=== PATIENT | male | born 1955 | race Caucasian/White ===

== ENCOUNTER 2019-10-29 08:54 | Inpatient (IN) | payer MEDICAID ==
[~2019-10-29] VITALS: Ht 165.1 cm; Wt 70.3 kg
--- NOTE | 2019-10-29 10:00 | NUR ---
RN MS/TELE ADMIT NOTES. ADMITTED PT FROM [facility] FOR C/O OF NAUSEA,DIARRHEA AND VOMITING PT IS AAO X 3 ABLE TO VERBALIZE HIS NEEDS [employer]AZ[employer] SPEAKING PLEASANT COOPERATIVE MD AND FAMILY NOTIFY ,ASSESSMENT DONE ,IV @ RFA #20 G,INTACT , DVT SCORE OF 5 MD AWARE AWAITING FOR A CALL BACK ORDER FOR ANTICOAGULANT, SCD PUMP CURRENTLY NPO NO C/O OF PAIN ABD SOFT WITH BS + IN ALL 4 Qs ORIENTED PT TO ROOM CALL LIGHT WITHIN REACH BED IN LOW POSITION LOCK ON ABLE TO AMBULATE TO BR WILL CONTINUE TO MONITOR. I
[2019-10-29] MEDS ORDERED: UNK CHOLESTEROL PO (10:24)
[2019-10-29] MEDS ORDERED: [UNRECOGNIZED DRUG - REMARK] PO (10:24)
[2019-10-29] MEDS ORDERED: ASPI-1169 PO (10:24)
[2019-10-29] MEDS ORDERED: [UNRECOGNIZED DRUG - REMARK] PO (10:24)
[2019-10-29] MEDS ORDERED: AMLO5TAB4 PO (10:39)
[2019-10-29] MEDS ORDERED: SACU1TAB4 PO (10:39)
[2019-10-29] MEDS ORDERED: FURO-145 PO (10:39)
[2019-10-29] MEDS ORDERED: ATOR10TA PO (10:39)
[2019-10-29] MEDS ORDERED: CARV25TA2 PO (10:39)
--- NOTE | 2019-10-29 10:40 | NUR ---
STUDIO MUSICIAN/MED RECON HOME MEDICATION UPDATED. INFORMATION OBTAINED FROM THE DAUGHTER (JOHNNIE). ALSO, STATED "HE STOP TAKING ALL HIS MEDICATION 2 WEEKS AGO". PRIMARY NURSE AWARE.
[2019-10-29 12:00] VITALS: BP 155/93
[2019-10-29] MEDS ORDERED: HYDROCODONE/APAP 5/325MG 1 EACH TABLET PO PRN (13:00)
[2019-10-29] MEDS ORDERED: ZOLPIDEM TARTRATE 5 MG TABLET PO PRN (13:00)
[2019-10-29] MEDS ORDERED: MAGNESIUM HYDROXIDE 30 ML UDC PO PRN (13:00)
[2019-10-29] MEDS ORDERED: MAG HYDROX/AL HYDROX/SIMETH 30 ML UDC PO PRN (13:00)
[2019-10-29] MEDS ORDERED: Z GUARD REMEDY 2 OZ OINT TP PRN (13:00)
[2019-10-29] MEDS ORDERED: ONDANSETRON HCL/PF 4 MG/2 ML VIAL IVP PRN (13:00)
[2019-10-29] MEDS: IV NS 0.9% 1,000 ML IV PRN ×2 (13:20→19:58)
[2019-10-29] MEDS: ACETAMINOPHEN 325 MG TABLET PO PRN ×3 (13:26→19:59)
[2019-10-29 16:00] VITALS: BP 146/85
[2019-10-29] MEDS ORDERED: ENOXAPARIN SODIUM 40 MG/0.4 ML DISP.SYRIN SQ SCH (17:00)
--- NOTE | 2019-10-29 18:45 | NUR ---
RN MS/TELE CLOSING NOTES .PT AAOX3 MALAGASY SPEAKING ABLE TO VERBALIZE HIS NEEDS REMAIN NPO NO FURTHER C/O OF NAUSEA OR VOMITING OR PAIN IV ON RFA # 20 G WITH IV HYDRATION NS 0.9% RUNNING @ 125 ML /H DVT SCORE OF 5 WITH NEW ORDER FOR LOVENOX 40 MG AND DVT PUMPS WILL CONTINUE TO MONITOR
--- NOTE | 2019-10-29 19:40 | NUR ---
rn notes: placed on isolation r/o cdiff, ppe utilized, will send stool specimen when pt has bm
[2019-10-29 20:00] VITALS: BP 144/89
--- NOTE | 2019-10-29 20:00 | NUR ---
PRN TYLENOL: LATEST TEMP 99.3, PT C/O HEAD ACHE 07/06, NOTIFIED MD PT NPO, PER MD WANG TO GIVE TYLENOL WITH SIPS OF WATER ONLY, PRN TYLENOL 650 MG TAB PO ADMINISTERED AT THIS TIME. WILL CONTINUE TO MONITOR AND REASSESS PT.
--- NOTE | 2019-10-29 21:00 | NUR ---
rn notes: all communication translated in south [place] with the help of south [place] speaking internet marketing strategist
[2019-10-30] VITALS: BP 144/90
[2019-10-30] MEDS: IV NS 0.9% 1,000 ML IV PRN (03:16)
[2019-10-30 03:55] VITALS: BP_SYST 145; BP_SYST 149; BP_DIAS 73; BP_DIAS 95
[2019-10-30 04:00] VITALS: BP 149/95
--- NOTE | 2019-10-30 06:45 | NUR ---
end of shift report: pt latest temp is 98.3, remains npo, no reported bm throughout the shift. iv access remains patent and flushing well, infusing with ns at 125ml/hr, no s/s of iv infiltration noted. no s/s of etoh withdrawal noted. remains sinus rhythm to sinus tachy hr ranging 90's highest 120 with activity.denies any pain or discomfort throughout the shift.remains isolation r/o cdiff, ppe utilized, vs remains stable, needs attended, safety precautions for fall remains engaged, call light in reach, will endorse to day rn for continuity of care.
[2019-10-30 06:47] LABS: BASOPHILS % (AUTO) 0.5 % (0.0-2.0); EOSINOPHILS % (AUTO) 0.3 % (0.0-6.0); HEMATOCRIT 39 % (39-51); HEMOGLOBIN 12.6 g/dL (13.5-17.5); LYMPHOCYTES # (AUTO) 1.7 /CMM (0.8-4.8); LYMPHOCYTES % (AUTO) 27.4 % (20.0-44.0); MEAN CORPUSCULAR HGB CONC 32 g/dl (31.0-36.0); MEAN CORPUSCULAR VOLUME 95 fL (80-96); MONOCYTES # (AUTO) 0.7 /CMM (0.1-1.30); MONOCYTES % (AUTO) 12.1 % (2.0-12.0); NEUTROPHILS # (AUTO) 3.7 /CMM (1.8-8.9); NEUTROPHILS % (AUTO) 59.7 % (43.0-81.0); PLATELET COUNT (AUTO) 293 /CMM (150-450); RED BLOOD CELL COUNT(AUTO) 4.09 MIL/uL (4.5-6.0); WHITE BLOOD COUNT (AUTO) 6.2 K/uL (4.3-11.0)
[2019-10-30 07:13] LABS: THYROID STIMULATING HORMONE 1.389 uIU/mL (0.358-3.74)
[2019-10-30 07:15] LABS: ALBUMIN 3.3 g/dL (3.4-5.0); BILIRUBIN,DIRECT 0.3 mg/dL (0.0-0.2); BILIRUBIN,TOTAL 2.9 mg/dL (0.2-1.0); CALCIUM, SERUM 8.1 mg/dL (8.5-10.1); CREATININE 0.7 mg/dL (0.6-1.3); MAGNESIUM 1.7 mg/dL (1.8-2.4); PHOSPHORUS 3.2 mg/dL (2.5-4.9); POTASSIUM 3.7 mmol/L (3.5-5.1); TOTAL PROTEIN, SERUM 6.4 g/dL (6.4-8.2)
[2019-10-30] MEDS ORDERED: PANTOPRAZOLE 40 MG TABLET.DR PO SCH (07:30)
--- NOTE | 2019-10-30 07:55 | NUR ---
RN MS/TELE OPENING NOTES .PT AAOX3 FIJIAN SPEAKING ABLE TO VERBALIZE HIS NEEDS REMAIN NPO NO FURTHER C/O OF NAUSEA VOMITING, DIARRHEA OR PAIN AFEBRILE,ABLE TO AMBULATE TO BR. IV ON RFA # 20 G WITH IV HYDRATION NS 0.9% RUNNING @ 125 ML /H . WILL CONTINUE TO MONITOR
[2019-10-30 08:00] VITALS: BP 151/89
[2019-10-30] MEDS ORDERED: ATORVASTATIN 10 MG TABLET PO SCH (09:18)
[2019-10-30] MEDS ORDERED: CARVEDILOL 12.5 MG TABLET PO SCH ×2 (09:19)
[2019-10-30] MEDS ORDERED: FUROSEMIDE 20 MG TABLET PO PRN (09:30)
[2019-10-30] MEDS: Magnesium 1GM/D5W 100ML PREMIX 100 ML IV SCH ×2 (10:11→11:19)
[2019-10-30] MEDS ORDERED: Sacubitril/Valsartan (Entresto 97 mg-103 mg Tablet) PO SCH (12:00)
[2019-10-30 16:00] VITALS: BP 137/73
--- NOTE | 2019-10-30 18:40 | NUR ---
MS RN NOTES PATIENT DISCHARGED HOME WITH SON. DISCHARGE EDUCATION PROVIDED TO PATIENT, VERBALIZED UNDERSTANDING. DISCHARGE PROTOCOL FOLLOWED. MD AWARE OF ALL ABNORMAL LABS AND TESTS. PERIPHERAL IV REMOVED. ID BAND REMOVED. PATIENT TOLERATED DIET WELL. NO NAUSEA OR VOMITING NOTED. PATIENT NOTED WITH LOOSE STOOLS. MD AWARE. PATIENT ESCORTED TO SONS CAR.
[2019-10-31] MEDS ORDERED: ASPIRIN 81 MG TAB.CHEW PO SCH (09:00)
[2019-10-31] MEDS ORDERED: AMLODIPINE BESYLATE 5 MG TABLET PO SCH (09:00)
== END 2019-10-30 18:50 | disposition home or self-care (01) | DRG 249 ==
LOC: TELE 08:54 → MED 10-30 09:18
PROVIDERS: ADMIT Student in an Organized Health Care Education/Training Program; ATTEND Student in an Organized Health Care Education/Training Program
DX: A08.4 Viral intestinal infection, unspecified (principal); I11.0 Hypertensive heart disease with heart failure; I50.32 Chronic diastolic (congestive) heart failure; E87.2 Acidosis; E44.1 Mild protein-calorie malnutrition; E87.1 Hypo-osmolality and hyponatremia; K44.9 Diaphragmatic hernia without obstruction or gangrene; N40.0 Benign prostatic hyperplasia without lower urinary tract symptoms; R73.03 Prediabetes; I70.90 Unspecified atherosclerosis; Z85.528 Personal history of other malignant neoplasm of kidney; F10.10 Alcohol abuse, uncomplicated; K64.9 Unspecified hemorrhoids; Z90.5 Acquired absence of kidney; R74.0 Nonspecific elevation of levels of transaminase and lactic acid dehydrogenase [LDH]; E88.09 Other disorders of plasma-protein metabolism, not elsewhere classified; Z95.2 Presence of prosthetic heart valve
CPT/HCPCS: 36415; 80048-TC; 80061-TC; 80076-TC; 83735-TC; 84100-TC; 84443-TC; 85025-TC; G0378; J1650; J2405; J3475; J7030